=== PATIENT | female | born 1965 ===

== ENCOUNTER 2020-11-24 10:45 | Day surgery (SDC) | payer OTHER | END 2020-11-25 06:30 | disposition home or self-care (01) | LOC: CIR.AMB 10:45 | PROVIDERS: ATTEND Obstetrics & Gynecology Obstetrics | DX: N95.0 Postmenopausal bleeding (principal); N72 Inflammatory disease of cervix uteri; Z20.822 Contact with and (suspected) exposure to COVID-19 ==